=== PATIENT | male | born 1950 | race Two or more races ===

== ENCOUNTER 2017-09-16 07:36 | Outpatient (CLI) | payer OTHER ==
[~2017-09-16 07:36] MED LIST: AVAPRO300 MG PO; BENZONATATE100 MG; CATAPRES 0.2MG TAB PO; CLONIDINE1 EAC1; COUMADIN5 MG PO; FENOFIBRATE40 MG; GABAPENTIN MC; GLIPIZIDE2.5 MG/BO1; HYDROCHLOROTH12.5 M1 PO; IRBESARTAN75 MG; LEVAQUIN750 MG PO
== END 2017-09-16 13:33 | disposition home or self-care (01) ==
LOC: NUCLEAR 07:36
DX: I25.10 Atherosclerotic heart disease of native coronary artery without angina pectoris (principal)
CPT/HCPCS: 78452; 93017; A9500; J0153

== ENCOUNTER → 2018-11-17 | Outpatient (CLI) | payer OTHER | END | disposition home or self-care (01) | LOC: RAD 09:25 | DX: H25.011 Cortical age-related cataract, right eye (principal); Z98.41 Cataract extraction status, right eye ==

== ENCOUNTER 2018-12-04 09:45 | Outpatient (CLI) | payer OTHER | END 2018-12-04 09:53 | disposition home or self-care (01) | LOC: RAD 09:45 | DX: M54.5 Low back pain (principal); M25.551 Pain in right hip; M25.552 Pain in left hip ==

== ENCOUNTER → 2019-12-07 | Outpatient (CLI) | payer OTHER | END | disposition home or self-care (01) | LOC: MRI 09:37 | PROVIDERS: ATTEND Neuromusculoskeletal Medicine & OMM | DX: M50.20 Other cervical disc displacement, unspecified cervical region (principal); M50.30 Other cervical disc degeneration, unspecified cervical region | CPT/HCPCS: 72141 ==

== ENCOUNTER 2020-01-07 14:22 | Outpatient (CLI) | payer OTHER | END 2020-01-07 14:28 | disposition home or self-care (01) | LOC: SONOGRAMA 14:22 → MAMO-SONO 14:45 | PROVIDERS: ATTEND Internal Medicine | DX: N18.4 Chronic kidney disease, stage 4 (severe) (principal) ==

== ENCOUNTER 2020-03-28 07:34 | Emergency (ER) | payer OTHER ==
[~2020-03-28] VITALS: Ht 165.1 cm; Wt 81.6 kg
== END 2020-03-28 16:26 | disposition home or self-care (01) ==
LOC: ER 07:34
DX: D50.0 Iron deficiency anemia secondary to blood loss (chronic) (principal); Z03.818 Encounter for observation for suspected exposure to other biological agents ruled out

== ENCOUNTER → 2020-04-14 16:03 | Outpatient (CLI) | payer OTHER | END | disposition home or self-care (01) | LOC: LAB 16:03 | PROVIDERS: ATTEND Internal Medicine | DX: D64.89 Other specified anemias (principal) ==

== ENCOUNTER 2020-08-14 13:54 | Inpatient (IN) | payer OTHER ==
[~2020-08-14] VITALS: Ht 165.1 cm; Wt 81.6 kg
[2020-08-14] MEDS ORDERED: UROXATRAL10 MG (14:07)
[2020-08-14] MEDS ORDERED: ADALAT CC60 MG (14:07)
[2020-08-14] MEDS ORDERED: KAPVAY0.1 MG (14:07)
[2020-08-14] MEDS ORDERED: ATORVASTATIN CA20 MG (14:08)
[2020-08-14] MEDS ORDERED: TOPROL XL100 M1 (14:08)
[2020-08-14] MEDS ORDERED: CIPRO500 MG/5 M (14:08)
[2020-08-14] MEDS ORDERED: OPTIMAL D31250 MCG (14:08)
[2020-08-14] MEDS ORDERED: LAMOTRIGINE100 MG (14:09)
[2020-08-14] MEDS ORDERED: FENOFIBRATE150 MG (14:09)
[2020-08-14] MEDS ORDERED: XARELTO10 MG (14:09)
--- NOTE | 2020-08-14 14:12 | NUR ---
PACIENTE ALERTA Y ORIENTADO. REFIERE HABERSE CAIDO EN OFICINA MEDICA ANTES DE [facility]. REFIERE TROPEZARSE CON AC ALFOMBRA Y FIDEL DEL LADO DAYAMI. PACIENTE REFIERE DOLOR CHARU EN EL BRAZO DAYAMI. SINTOMAS PRESENTES AL MOMENTO DE TRIAGE. BRAZO DAYAMI SE OBSERVA INFLAMADO. ADEMAS, PACIENTE ES REFERIDO [facility]PITAL POR DR. [place] FIGUEROA POR CKD. SE MIDE S/V. SE UBICA EN HEAVEN DE OBSERVACION PARA EVALUACION MEDICA Y TRATAMIENTO.
[2020-09-03] MEDS ORDERED: LIPITOR20 MG PO (09:14)
[2020-09-03] MEDS ORDERED: TOPROL XL100 M1 PO (09:14)
[2020-09-03] MEDS ORDERED: PROTONIX40 MG PO (09:14)
[2020-09-03] MEDS ORDERED: AMLODIPINE BESYL5 MG PO (09:14)
[2020-09-03] MEDS ORDERED: LOSARTAN POTAS100 MG PO (09:14)
[2020-09-03] MEDS ORDERED: CARDURA XL4 MG PO (09:14)
[2020-09-03] MEDS ORDERED: ULTRAM50 MG PO (09:46)
== END 2020-09-03 16:23 | disposition home or self-care (01) | DRG 562 ==
LOC: ER 13:54 → SEC-K 20:58 → MEDI 20:58
PROVIDERS: Radiology Vascular & Interventional Radiology; ADMIT Internal Medicine; ATTEND Internal Medicine
PROC: 3E0F7SF Introduction of Other Gas into Respiratory Tract, Via Natural or Artificial Opening (ICD-10-PCS; 2020-08-14)
PROC: 05HM33Z Insertion of Infusion Device into Right Internal Jugular Vein, Percutaneous Approach (ICD-10-PCS; 2020-08-15)
PROC: B5131ZA Fluoroscopy of Right Jugular Veins using Low Osmolar Contrast, Guidance (ICD-10-PCS; 2020-08-15)
PROC: B543ZZA Ultrasonography of Right Jugular Veins, Guidance (ICD-10-PCS; 2020-08-15)
PROC: 30243N1 Transfusion of Nonautologous Red Blood Cells into Central Vein, Percutaneous Approach (ICD-10-PCS; 2020-08-15)
PROC: 5A1D70Z Performance of Urinary Filtration, Intermittent, Less than 6 Hours Per Day (ICD-10-PCS; 2020-08-15)
PROC: 0JH63XZ Insertion of Tunneled Vascular Access Device into Chest Subcutaneous Tissue and Fascia, Percutaneous Approach (ICD-10-PCS; principal; 2020-08-15 18:00)
PROC: 5A1D70Z Performance of Urinary Filtration, Intermittent, Less than 6 Hours Per Day (ICD-10-PCS; 2020-08-16)
PROC: 5A1D70Z Performance of Urinary Filtration, Intermittent, Less than 6 Hours Per Day (ICD-10-PCS; 2020-08-17)
PROC: 0J2TXYZ Change Other Device in Trunk Subcutaneous Tissue and Fascia, External Approach (ICD-10-PCS; 2020-08-21)
PROC: B5131ZA Fluoroscopy of Right Jugular Veins using Low Osmolar Contrast, Guidance (ICD-10-PCS; 2020-08-21)
PROC: 5A1D70Z Performance of Urinary Filtration, Intermittent, Less than 6 Hours Per Day (ICD-10-PCS; 2020-08-21)
PROC: 5A1D70Z Performance of Urinary Filtration, Intermittent, Less than 6 Hours Per Day (ICD-10-PCS; 2020-08-22)
PROC: 4A03XR1 Measurement of Arterial Saturation, Peripheral, External Approach (ICD-10-PCS; 2020-08-23)
PROC: 5A1D70Z Performance of Urinary Filtration, Intermittent, Less than 6 Hours Per Day (ICD-10-PCS; 2020-08-23)
PROC: 4A12X4Z Monitoring of Cardiac Electrical Activity, External Approach (ICD-10-PCS; 2020-08-24)
PROC: 5A1D70Z Performance of Urinary Filtration, Intermittent, Less than 6 Hours Per Day (ICD-10-PCS; 2020-08-25)
PROC: 5A1D70Z Performance of Urinary Filtration, Intermittent, Less than 6 Hours Per Day (ICD-10-PCS; 2020-08-26)
PROC: 5A1D70Z Performance of Urinary Filtration, Intermittent, Less than 6 Hours Per Day (ICD-10-PCS; 2020-08-27)
PROC: 5A1D70Z Performance of Urinary Filtration, Intermittent, Less than 6 Hours Per Day (ICD-10-PCS; 2020-08-29)
PROC: 5A1D70Z Performance of Urinary Filtration, Intermittent, Less than 6 Hours Per Day (ICD-10-PCS; 2020-08-30)
PROC: 5A1D70Z Performance of Urinary Filtration, Intermittent, Less than 6 Hours Per Day (ICD-10-PCS; 2020-08-31)
PROC: 5A1D70Z Performance of Urinary Filtration, Intermittent, Less than 6 Hours Per Day (ICD-10-PCS; 2020-09-01)
PROC: 0DB98ZX Excision of Duodenum, Via Natural or Artificial Opening Endoscopic, Diagnostic (ICD-10-PCS; 2020-09-02)
PROC: 0DB78ZX Excision of Stomach, Pylorus, Via Natural or Artificial Opening Endoscopic, Diagnostic (ICD-10-PCS; 2020-09-02)
PROC: 5A1D70Z Performance of Urinary Filtration, Intermittent, Less than 6 Hours Per Day (ICD-10-PCS; 2020-09-02)
DX: S42.292A Other displaced fracture of upper end of left humerus, initial encounter for closed fracture (principal); N18.6 End stage renal disease; T82.41XA Breakdown (mechanical) of vascular dialysis catheter, initial encounter; K92.0 Hematemesis; K26.3 Acute duodenal ulcer without hemorrhage or perforation; K25.3 Acute gastric ulcer without hemorrhage or perforation; K20.80 Other esophagitis without bleeding; B96.81 Helicobacter pylori [H. pylori] as the cause of diseases classified elsewhere; D63.1 Anemia in chronic kidney disease; I10 Essential (primary) hypertension; R07.89 Other chest pain; D69.6 Thrombocytopenia, unspecified; E11.43 Type 2 diabetes mellitus with diabetic autonomic (poly)neuropathy; K31.84 Gastroparesis; Z79.4 Long term (current) use of insulin; K29.50 Unspecified chronic gastritis without bleeding; Z20.822 Contact with and (suspected) exposure to COVID-19; W18.39XA Other fall on same level, initial encounter; Y93.89 Activity, other specified; Y92.018 Other place in single-family (private) house as the place of occurrence of the external cause; Z99.2 Dependence on renal dialysis

== ENCOUNTER 2020-09-07 10:43 | Inpatient (IN) | payer OTHER ==
[~2020-09-07 10:43] MED LIST changes: +ADALAT CC60 MG; +AMLODIPINE BESYL5 MG PO; +ATORVASTATIN CA20 MG; +CARDURA XL4 MG PO; +CIPRO500 MG/5 M; +FENOFIBRATE150 MG; +KAPVAY0.1 MG; +LAMOTRIGINE100 MG; +LIPITOR20 MG PO; +LOSARTAN POTAS100 MG PO; +OPTIMAL D31250 MCG; +PROTONIX40 MG PO; +TOPROL XL100 M1; +TOPROL XL100 M1 PO; +ULTRAM50 MG PO; +UROXATRAL10 MG; +XARELTO10 MG
[2020-09-08] MEDS ORDERED: CLONIDINE HCL0.2 MG (08:37)
== END 2020-09-13 04:20 | disposition expired | DRG 377 ==
LOC: ER 10:43 → ICU-2 13:48 → MEDI 09-09 10:04 → ICU 09-11 11:14
PROVIDERS: ADMIT Internal Medicine; ATTEND Internal Medicine
PROC: 02H633Z Insertion of Infusion Device into Right Atrium, Percutaneous Approach (ICD-10-PCS; 2020-09-09)
PROC: 4A12X4Z Monitoring of Cardiac Electrical Activity, External Approach (ICD-10-PCS; 2020-09-11)
PROC: 30233R1 Transfusion of Nonautologous Platelets into Peripheral Vein, Percutaneous Approach (ICD-10-PCS; 2020-09-12)
PROC: 30233N1 Transfusion of Nonautologous Red Blood Cells into Peripheral Vein, Percutaneous Approach (ICD-10-PCS; principal; 2020-09-13)
PROC: 5A1D70Z Performance of Urinary Filtration, Intermittent, Less than 6 Hours Per Day (ICD-10-PCS; 2020-09-13)
PROC: 0BH17EZ Insertion of Endotracheal Airway into Trachea, Via Natural or Artificial Opening (ICD-10-PCS; 2020-09-13)
DX: K26.4 Chronic or unspecified duodenal ulcer with hemorrhage (principal); N18.6 End stage renal disease; I12.0 Hypertensive chronic kidney disease with stage 5 chronic kidney disease or end stage renal disease; D62 Acute posthemorrhagic anemia; D69.6 Thrombocytopenia, unspecified; Z20.822 Contact with and (suspected) exposure to COVID-19; Z53.29 Procedure and treatment not carried out because of patient's decision for other reasons; Z99.2 Dependence on renal dialysis